=== PATIENT | female | born 1945 | race African-American/Black ===

== ENCOUNTER 2016-10-07 13:48 | Emergency (ER) | payer MEDICARE ==
[~2016-10-07] VITALS: Ht 167.6 cm; Wt 74.4 kg
[2016-10-07] MEDS ORDERED: ORPHENADRINE CITRATE 60 MG/2 ML VIAL. IM ONE (14:30)
[2016-10-07] MEDS ORDERED: ACETAMINOPHEN 325 MG TABLET. PO ONE (14:30)
--- NOTE | 2016-10-07 14:32 | PHYS DOC ---
Past Medical History Past Medical History: Diabetes-Type II, Diverticulosis, High Cholesterol, Hypertension Past Surgical History: Other Additional Past Surgical Histo: VENTRAL HERNIA REPAIR FOLLOWING UNK ABDOMINAL SURGERY 2007 Alcohol Use: None Drug Use: None Adult General Chief Complaint Chief Complaint: Neck Pain HPI HPI Patient is a 71 year old female who presents with complaint of neck pain. Patient states her symptoms started 4 days ago. Patient states that she had mild pain along her neck when she awoke 4 days ago. Patient states that this gradually progressed to worsening tightness and pain. Patient states that she has pain with lateral movement and with extension and flexion. Patient states that the pain travels towards the back of her head. Patient states that she took Tylenol yesterday with no relief in symptoms. Patient has not taken any medications help her symptoms currently. Patient denies any history of similar symptoms. Patient denies any associated focal neurologic symptoms, fever, or vomiting. Patient rates her pain as 7 out of 10 currently. Review of Systems Review of Systems Constitutional: Denies fever or chills [] Eyes: Denies change in visual acuity, redness, or eye pain [] HENT: Denies nasal congestion or sore throat [] Respiratory: Denies cough or shortness of breath [] Cardiovascular: Denies chest pain or edema [] GI: Denies abdominal pain, nausea, vomiting, bloody stools or diarrhea [] : Denies dysuria or hematuria [] Musculoskeletal: Neck pain [] Integument: Denies rash or skin lesions [] Neurologic: Denies headache, focal weakness or sensory changes [] Endocrine: Denies polyuria or polydipsia [] Current Medications Current Medications Current Medications Medications (Trade) Dose Ordered Sig/[facility] Start Time Stop Time Status Last Admin Dose Admin Acetaminophen (Tylenol) 650 mg 1X ONCE 10/07/16 14:30 10/07/16 14:31 DC 10/07/16 14:47 650 MG Orphenadrine Citrate (Norflex) 60 mg 1X ONCE 10/07/16 14:30 10/07/16 14:31 DC 10/07/16 14:49 60 MG Allergies Allergies Allergies Coded Allergies Type Severity Reaction Last Updated Verified No Known Drug Allergies 10/07/16 No Physical Exam Physical Exam Constitutional: Alert, afebrile, appears in mild discomfort. [] HENT: Normocephalic, atraumatic, bilateral external ears normal, oropharynx moist, no oral exudates, nose normal. [] Eyes: PERRLA, EOMI, conjunctiva normal, no discharge. [] Neck: Range of motion limited secondary to pain, no midline tenderness, bilateral her spinous muscle tenderness with palpable spasm, supple, no stridor. [] Cardiovascular:Heart rate regular rhythm, no murmur [] Lungs & Thorax: Bilateral breath sounds clear to auscultation [] Abdomen: Bowel sounds normal, soft, no tenderness, no masses, no pulsatile masses. [] Skin: Warm, dry, no erythema, no rash. [] Back: No tenderness, no CVA tenderness. [] Extremities: No tenderness, no cyanosis, no clubbing, ROM intact, no edema. [] Neurologic: Alert and oriented X 3, normal motor function, normal sensory function, no focal deficits noted. [] Current Patient Data Vital Signs Vital Signs Date Time Temp Pulse Resp B/P (MAP) Pulse Ox O2 Delivery O2 Flow Rate FiO2 10/07/16 15:20 72 16 144/78 (100) 99 Room Air 10/07/16 14:08 98.1 98.1 EKG EKG Not performed [] Radiology/Procedures Radiology/Procedures Not performed [] Course & Med Decision Making Course & Med Decision Making Pertinent Labs and Imaging studies reviewed. (See chart for details) The patient was given IM Norflex and oral Tylenol in the emergency department. Patient states that she has improved range of motion after treatment. The patient will continue on Norflex and Tylenol as outpatient. Patient also recommended to take [id number] naproxen 1 tablet daily for the next 5 days to help with symptoms. Advise follow-up with patient's primary doctor in the next 3 days and return to emergency department for any worsening symptoms. Patient voiced understanding and in agreement with treatment plan. Dragon Disclaimer Dragon Disclaimer This electronic medical record was generated, in whole or in part, using a voice recognition dictation system. Departure Departure Impression: Primary Impression: Muscle spasms of neck Disposition: 01 HOME, SELF-CARE Condition: IMPROVED Referrals: FRANNY FERNÁNDEZ MD (PCP) Patient Instructions: Muscle Strain Additional Instructions: You may take [id number] Tylenol as instructed on the bottle as needed for pain. You may also take one Aleve tablet daily for 5 days to assist with pain control. Follow-up with primary doctor in 3 days. Return to the emergency department for any worsening symptoms. Scripts Cyclobenzaprine Hcl (CYCLOBENZAPRINE HCL) 10 Mg Tablet 10 MG PO TID Y for MUSCLE SPASMS, #30 TAB Prov: ROSE CHRISTINA MD 10/07/16 ROSE CHRISTINA MD October 07, 2016 14:32
[2016-10-07 15:20] VITALS: BP 144/78
[2016-10-07] MEDS ORDERED: CYCL10TA2 PO (15:37)
== END 2016-10-07 15:45 | disposition home or self-care (01) ==
LOC: ER 14:24
DX: M62.838 Other muscle spasm (principal); M54.2 Cervicalgia; E11.9 Type 2 diabetes mellitus without complications; E78.00 Pure hypercholesterolemia, unspecified; I10 Essential (primary) hypertension
CPT/HCPCS: 96372; 99283; J2360

== ENCOUNTER 2016-10-14 20:10 | Emergency (ER) | payer MEDICARE ==
[~2016-10-14] VITALS: Ht 170.2 cm; Wt 74.4 kg
[~2016-10-14 20:10] MED LIST: CYCL10TA2 PO
[2016-10-14 21:11] LABS: BILIRUBIN,URINE MODERATE (NEG); GLUCOSE,URINE NEGATIVE (NEG); NITRITE,URINE NEGATIVE (NEG); PH,URINE 5.5; PROTEIN,URINE 100 mg/dL (NEG-TRACE)
[2016-10-14 21:17] LABS: BACTERIA,URINE MODERATE /HPF (0-FEW); RBC,URINE TNTC /HPF (0-2); SQUAMOUS EPITHELIAL CELL,UR MOD /LPF
--- NOTE | 2016-10-14 21:34 | PHYS DOC ---
Past Medical History Past Medical History: Diabetes-Type II, Diverticulosis, High Cholesterol, Hypertension Past Surgical History: Other Additional Past Surgical Histo: VENTRAL HERNIA REPAIR FOLLOWING UNK ABDOMINAL SURGERY 2007 Alcohol Use: None Drug Use: None Adult General Chief Complaint Chief Complaint: BLOOD IN URINE HPI HPI Patient is a 71 year old female who presents with hematuria. The patient states she noticed blood in her urine this morning. This has been persistent throughout the day. She also reports mild dysuria & frequency. Denies fevers/ chills, nausea/vomiting, diarrhea, hematochezia/melena, abdominal pain, flank pain. She has previous history of hematuria, took "some pills" from her PCP, & symptoms improved. She denies history of kidney stones. She does not take blood thinners & denies bleeding from gums, hematemesis, blood in stools. PCP is Dr. Cardona. Review of Systems Review of Systems Constitutional: Denies fever or chills HENT: Denies nasal congestion or sore throat Respiratory: Denies cough or shortness of breath Cardiovascular: Denies chest pain GI: Denies abdominal pain, nausea, vomiting, bloody stools or diarrhea : Reports dysuria & hematuria Musculoskeletal: Denies back pain or joint pain Integument: Denies rash Neurologic: Denies headache Current Medications Current Medications Current Medications Medications (Trade) Dose Ordered Sig/[facility] Start Time Stop Time Status Last Admin Dose Admin Nitrofurantoin Macrocrystals (Macrobid) 100 mg 1X ONCE 10/14/16 23:00 10/14/16 23:00 DC Potassium Chloride (KCl Oral Soln) 40 meq 1X ONCE 10/14/16 23:00 10/14/16 23:01 DC 10/14/16 23:03 40 MEQ Trimethoprim/ Sulfamethoxazole (Bactrim Ds) 1 tab 1X ONCE 10/14/16 23:00 10/14/16 23:01 DC 10/14/16 23:03 1 TAB Allergies Allergies Allergies Coded Allergies Type Severity Reaction Last Updated Verified No Known Drug Allergies 10/07/16 No Physical Exam Physical Exam Constitutional: Well developed, well nourished, no acute distress, non-toxic appearance. HENT: Normocephalic, atraumatic, bilateral external ears normal, oropharynx moist, nose normal. Eyes: conjunctiva normal, no discharge. Neck: supple, no stridor. Cardiovascular: RRR, no murmurs, no edema. Lungs & Thorax: LCTAB, no wheezing, no respiratory distress. Abdomen: soft, nontender, nondistended. Skin: Warm, dry, no erythema, no rash. Back: No CVA tenderness. Extremities: No tenderness, no edema. Neurologic: Alert and oriented X 3, no focal deficits noted. Psychologic: Affect normal, judgement normal, mood normal. Current Patient Data Vital Signs Vital Signs Date Time Temp Pulse Resp B/P (MAP) Pulse Ox O2 Delivery O2 Flow Rate FiO2 10/14/16 22:10 82 18 159/70 (99) 98 Room Air 10/14/16 21:10 98.2 98.2 Lab Values Laboratory Tests Test 10/14/16 21:01 10/14/16 22:09 Urine Collection Type Unknown Urine Color Red Urine Clarity Turbid Urine pH 5.5 Urine Specific [place] 1.015 Urine Protein 100 mg/dL (NEG-TRACE) Urine Glucose (UA) Negative mg/dL (NEG) Urine Ketones (Stick) 15 mg/dL (NEG) Urine Blood Large (NEG) Urine Nitrite Negative (NEG) Urine Bilirubin Moderate (NEG) Urine Urobilinogen Dipstick 1.0 mg/dL (0.2 mg/dL) Urine Leukocyte Esterase Moderate (NEG) Urine RBC Tntc /HPF (0-2) Urine WBC 11-20 /HPF (0-4) Urine Squamous Epithelial Cells Mod /LPF Urine Bacteria Moderate /HPF (0-FEW) Urine Mucus Mod /LPF White Blood Count 9.0 x10^3/uL (4.0-11.0) Red Blood Count 4.06 x10^6/uL (3.50-5.40) Hemoglobin 12.5 g/dL (12.0-15.5) Hematocrit 35.6 % (36.0-47.0) L Mean Corpuscular Volume 88 fL (79-100) Mean Corpuscular Hemoglobin 31 pg (25-35) Mean Corpuscular Hemoglobin Concent 35 g/dL (31-37) Red Cell Distribution Width 14.9 % (11.5-14.5) H Platelet Count 301 x10^3/uL (140-400) Neutrophils (%) (Auto) 71 % (31-73) Lymphocytes (%) (Auto) 20 % (24-48) L Monocytes (%) (Auto) 6 % (0-9) Eosinophils (%) (Auto) 2 % (0-3) Basophils (%) (Auto) 1 % (0-3) Neutrophils # (Auto) 6.4 x10^3uL (1.8-7.7) Lymphocytes # (Auto) 1.8 x10^3/uL (1.0-4.8) Monocytes # (Auto) 0.5 x10^3/uL (0.0-1.1) Eosinophils # (Auto) 0.2 x10^3/uL (0.0-0.7) Basophils # (Auto) 0.1 x10^3/uL (0.0-0.2) Sodium Level 140 mmol/L (136-145) Potassium Level 3.3 mmol/L (3.5-5.1) L Chloride Level 103 mmol/L (98-107) Carbon Dioxide Level 30 mmol/L (21-32) Anion Gap 7 (6-14) Blood Urea Nitrogen 32 mg/dL (7-20) H Creatinine 1.3 mg/dL (0.6-1.0) H Estimated GFR (Cockcroft-Gault) 48.7 BUN/Creatinine Ratio 25 (6-20) H Glucose Level 98 mg/dL (70-99) Calcium Level 10.2 mg/dL (8.5-10.1) H Total Bilirubin 0.3 mg/dL (0.2-1.0) Aspartate Amino Transferase (AST) 16 U/L (15-37) Alanine Aminotransferase (ALT) 25 U/L (14-59) Alkaline Phosphatase 56 U/L (46-116) Total Protein 7.4 g/dL (6.4-8.2) Albumin 3.3 g/dL (3.4-5.0) L Albumin/Globulin Ratio 0.8 (1.0-1.7) L Laboratory Tests 10/14/16 22:09 Laboratory Tests 10/14/16 22:09 EKG EKG [] Radiology/Procedures Radiology/Procedures PROCEDURE: CT ABDOMEN PELVIS WO CONTRAST PROCEDURE CT study of the abdomen and pelvis without contrast HISTORY Painless hematuria since this a.m.. TECHNIQUE Noncontrast helical CT scanning of the abdomen and pelvis was performed. Without contrast, the sensitivity to detect organ pathology and GI tract pathology is decreased. One or more of the following individualized dose reduction techniques were utilized for this study: 1. Automated exposure control 2. Adjustment of the mA and/or kV according to patient size 3. Use of iterative reconstruction technique COMPARISON February 17, 2009. FINDINGS There is a cyst of the left lobe of the liver. The spleen is not enlarged. The pancreas is homogeneous in appearance on this noncontrast study. The gallbladder is normal. No extrahepatic biliary ductal dilatation is seen. No focal aneurysmal dilatation of the abdominal aorta is seen. No abnormally enlarged abdominal or pelvic lymphadenopathy is seen. Again seen is calcification within the left ovary. The left ovary is unchanged in size. The urinary bladder wall is smooth. Sigmoid and colonic diverticulosis is seen without diverticulitis. The terminal ileum is unremarkable. The appendix is normal. No obstructive bowel pattern is seen. No free air or free fluid or mesenteric inflammatory change is seen. No hydronephrosis or hydroureter is seen. Left kidney is smaller than the right kidney. No renal mass is seen. No lung base consolidation is seen. No osteolytic process is seen. IMPRESSION No acute abnormality of the abdomen or pelvis is evident. Progressive left renal atrophy. No hydronephrosis or hydroureter is seen. No significant calcification of the left main renal artery is seen on this study. Colonic diverticulosis without diverticulitis. Electronically signed by: Darya Lynch MD (October 14, 2016 22:35:07) DICTATED and SIGNED BY: DARYA LYNCH MD DATE: 10/14/16 2235 [] Course & Med Decision Making Course & Med Decision Making Pertinent Labs and Imaging studies reviewed. (See chart for details) The patient presents with hematuria. She has UTI likely hemorrhagic cystitis, low potassium replaced orally, slightly elevated Cr, unremarkable CT. Gave prescription for bactrim, follow up with PCP in 2-3 days. Needs blood pressure recheck as elevated here. Recommend rest, PO hydration. Come back for high fever, severe abdominal pain or flank pain, uncontrolled vomiting, any otherwise worsening condition. Discharged home in stable condition. Dragon Disclaimer Dragon Disclaimer This electronic medical record was generated, in whole or in part, using a voice recognition dictation system. Departure Departure Impression: Primary Impression: Urinary tract infection Additional Impressions: Hematuria Hypokalemia Disposition: 01 HOME, SELF-CARE Condition: STABLE Referrals: FRANNY CARDONA MD (PCP) Patient Instructions: Hematuria, Adult, Urinary Tract Infection, [id number] Additional Instructions: You were seen in the emergency department today for blood in urine. You have a urinary tract infection. Please take the prescribed antibiotic. Drink fluids to stay hydrated. Follow up with Dr. Cardona in 2-3 days if not improving, otherwise within 1-2 weeks. You may need to see a urology specialist if the blood does not go away with treatment of the infection. Come back for high fever, severe abdominal pain or flank pain, uncontrolled vomiting, blood in vomit or stools, any otherwise worsening condition. Scripts Sulfamethoxazole/Trimethoprim (BACTRIM 400-80 MG TABLET) 1 Each Tablet 1 TAB PO BID, #10 TAB Prov: LAURA DUMONT MD 10/14/16 Problem Qualifiers LAURA DUMONT MD October 14, 2016 21:34
[2016-10-14 22:10] VITALS: BP 159/70
[2016-10-14 22:17] LABS: BASO # 0.1 x10^3/uL (0.0-0.2); BASO % 1 % (0-3); EOS % 2 % (0-3); HEMATOCRIT 35.6 % (36.0-47.0); HEMOGLOBIN 12.5 g/dL (12.0-15.5); LYMPH # 1.8 x10^3/uL (1.0-4.8); LYMPH % 20 % (24-48); MEAN CORPUSCULAR HEMOGLOBIN 31 pg (25-35); MEAN CORPUSCULAR HGB CONC 35 g/dL (31-37); MEAN CORPUSCULAR VOLUME 88 fL (79-100); MONO % 6 % (0-9); NEUT % 71 % (31-73); PLATELET COUNT 301 x10^3/uL (140-400); RED BLOOD COUNT 4.06 x10^6/uL (3.50-5.40); RED CELL DISTRIBUTION WIDTH 14.9 % (11.5-14.5)
[2016-10-14 22:30] LABS: CALCIUM 10.2 mg/dL (8.5-10.1); CREATININE 1.3 mg/dL (0.6-1.0); GFR 48.7; POTASSIUM 3.3 mmol/L (3.5-5.1)
--- NOTE | 2016-10-14 22:35 | RAD ---
PROCEDURE CT study of the abdomen and pelvis without contrast HISTORY Painless hematuria since this a.m.. TECHNIQUE Noncontrast helical CT scanning of the abdomen and pelvis was performed. Without contrast, the sensitivity to detect organ pathology and GI tract pathology is decreased. One or more of the following individualized dose reduction techniques were utilized for this study: 1. Automated exposure control 2. Adjustment of the mA and/or kV according to patient size 3. Use of iterative reconstruction technique COMPARISON February 17, 2009. FINDINGS There is a cyst of the left lobe of the liver. The spleen is not enlarged. The pancreas is homogeneous in appearance on this noncontrast study. The gallbladder is normal. No extrahepatic biliary ductal dilatation is seen. No focal aneurysmal dilatation of the abdominal aorta is seen. No abnormally enlarged abdominal or pelvic lymphadenopathy is seen. Again seen is calcification within the left ovary. The left ovary is unchanged in size. The urinary bladder wall is smooth. Sigmoid and colonic diverticulosis is seen without diverticulitis. The terminal ileum is unremarkable. The appendix is normal. No obstructive bowel pattern is seen. No free air or free fluid or mesenteric inflammatory change is seen. No hydronephrosis or hydroureter is seen. Left kidney is smaller than the right kidney. No renal mass is seen. No lung base consolidation is seen. No osteolytic process is seen. IMPRESSION No acute abnormality of the abdomen or pelvis is evident. Progressive left renal atrophy. No hydronephrosis or hydroureter is seen. No significant calcification of the left main renal artery is seen on this study. Colonic diverticulosis without diverticulitis. Electronically signed by: Boone Lynch MD (October 14, 2016 22:35:07)
[2016-10-14 22:37] LABS: ALBUMIN 3.3 g/dL (3.4-5.0); ALBUMIN/GLOBULIN RATIO 0.8 (1.0-1.7); TOTAL BILIRUBIN 0.3 mg/dL (0.2-1.0); TOTAL PROTEIN 7.4 g/dL (6.4-8.2)
[2016-10-14] MEDS ORDERED: SULF1TAB23 PO (22:44)
[2016-10-14] MEDS ORDERED: SMZ/TMP 800/160MG TABLET. PO ONE (23:00)
[2016-10-14] MEDS ORDERED: NITROFURANTOIN MONOHYD/M-CRYST 100 MG CAPSULE. PO ONE (23:00)
[2016-10-14] MEDS ORDERED: POTASSIUM CHLORIDE 20 MEQ/15 ML ORAL LIQUID. PO ONE (23:00)
== END 2016-10-14 23:09 | disposition home or self-care (01) ==
LOC: ER 20:10
DX: N39.0 Urinary tract infection, site not specified (principal); E87.6 Hypokalemia; R31.9 Hematuria, unspecified; E11.9 Type 2 diabetes mellitus without complications; E78.00 Pure hypercholesterolemia, unspecified; I10 Essential (primary) hypertension; Z98.890 Other specified postprocedural states; Z87.19 Personal history of other diseases of the digestive system
CPT/HCPCS: 36415; 74176; 80053; 81001; 85027; 87086; 99285-25

== ENCOUNTER → 2016-11-13 | Outpatient (CLI) | payer MEDICARE ==
[2016-10-14 22:10] VITALS: BP 159/70
[~2016-11-13] MED LIST changes: +SULF1TAB23 PO
--- NOTE | 2016-11-13 15:50 | RAD ---
EXAM: Renal/retroperitonal ultrasound HISTORY: Hematuria. COMPARISON: 02/17/2009. FINDINGS: Ultrasound of the kidneys, bladder and retroperitoneum was performed. The right kidney measures 10.8 cm. Cortical thickness and echogenicity are preserved. There is no hydronephrosis. The left kidney measures 10.3 cm. Cortical thickness and echogenicity are preserved. There is no hydronephrosis. A cyst anteriorly measures 1.4 x 1.4 cm and appears benign. Images of the bladder demonstrate a large soft tissue mass arising from the right aspect of the bladder that measures 5.2 x 4.1 x 4.0 cm. Internal flow is noted. No gross extravesical extension is demonstrated sonographically.. IMPRESSION: 1. 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 Cystoscopy is recommended for further evaluation.
== END | disposition home or self-care (01) ==
LOC: US 14:28
PROVIDERS: ATTEND Family Medicine
DX: R31.9 Hematuria, unspecified (principal); N32.9 Bladder disorder, unspecified
CPT/HCPCS: 76770